=== PATIENT | male | born 1965 | race Two or more races ===

== ENCOUNTER 2018-09-29 09:16 | Emergency (ER) | payer MEDICAID ==
[~2018-09-29] VITALS: Ht 175.3 cm; Wt 93.9 kg
[~2018-09-29 09:16] MED LIST: INDO50CA82 PO; LEVO125T59 PO; METH750T3 PO
[2018-09-29 09:25] VITALS: BP 140/96
[2018-09-29] MEDS ORDERED: CLINDAMYCIN 900MG IV 50 ML IV ONE (12:30)
[2018-09-29] MEDS ORDERED: LIDOCAINE 1% (LOCAL ANESTH.) PF 5ml SDV ID ONE (13:30)
[2018-09-29] MEDS ORDERED: VANCOMYCIN 1GM/250ML 250 ML IV ONE (13:30)
[2018-09-29] MEDS ORDERED: BACITRACIN TOP OINT 1 UD PKG TOP ONE (13:30)
[2018-09-29] MEDS ORDERED: LIDOCAINE W/ EPINEPHRINE 1 % INJ 30ML ONE (13:31)
[2018-09-29] MEDS ORDERED: KETOROLAC TROMETH 30 MG/ML 1ML VIAL IV ONE (14:45)
[2018-09-29] MEDS ORDERED: HYDROcodone-ACET 10/325MG TAB PO ONE (16:00)
[2018-09-29] MEDS ORDERED: HYDROcodone-ACET 5/325MG TAB PO ONE (16:15)
[2018-09-29] MEDS ORDERED: SODIUM CHLORIDE 0.9% 2,000 ML IV ONE (16:26)
[2018-09-29 17:10] LABS: Basophils # (auto) 0 uL; Basophils % (auto) 0.5 % (0.0-2.0); Eosinophils # (auto) 0.3 uL; Eosinophils % (auto) 3.6 % (0.0-7.0); Hematocrit 42.4 % (41.0-53.0); Hemoglobin 14.4 g/dL (13.5-17.5); Lymphocytes # (auto) 1.5 uL; Lymphocytes % (auto) 15.5 % (10.0-50.0); Mean Corpuscular Hemoglobin 30.6 pg (28.0-32.0); Mean Corpuscular Hgb Conc. 34.1 g/dL (32.0-36.0); Mean Corpuscular Volume 89.9 fL (80.0-100.0); Monocytes # (auto) 1.2 uL; Monocytes % (auto) 13.1 % (0.0-12.0); Neutrophils # (auto) 6.4 uL; Neutrophils % (auto) 67.3 % (37.0-80.0); Platelet Count (auto) 285 10^3/uL (140-450); Red Blood Cells 4.71 10^6/uL (4.5-5.90); Red Cell Distribution Width 13.7 % (11.8-14.3); White Blood Cell 9.5 10^3/uL (4.4-10.8)
[2018-09-29 17:25] LABS: Alanine Aminotransferase 31 U/L (16-61); Albumin 3.3 g/dL (3.4-5.0); Anion Gap 6 (5-15); Aspartate Aminotransferase 22 U/L (15-37); BUN/Creatinine Ratio 18.8; Blood Urea Nitrogen 18 mg/dL (7-18); Calcium 8.5 mg/dL (8.5-10.1); Carbon Dioxide 27 mmol/L (21-32); Chloride 106 mmol/L (98-107); GFR African American 106 mL/min; GFR Non-African American 88 mL/min; Glucose 97 mg/dL (74-106); Potassium 4.1 mmol/L (3.5-5.1); Sodium 139 mmol/L (136-145)
[2018-09-29 17:28] LABS: INR 0.99 (0.9-1.15); Partial Thromboplastin Time 31.2 sec (23.78-33.04); Prothrombin Time 10.6 sec (9.27-12.13)
[2018-09-29 17:30] LABS: Alkaline Phosphatase 104 U/L (45-117); Bilirubin, Total 0.1 mg/dL (0.2-1.0); Total Protein 7.7 g/dL (6.4-8.2)
[2018-09-29] MEDS ORDERED: NEOMYCIN-BACITRACIN-POLYM 15GM TOP OINT TOP ONE (17:42)
== END 2018-09-29 19:01 | disposition home or self-care (01) ==
LOC: ER 09:16
DX: L03.012 Cellulitis of left finger (principal); R07.9 Chest pain, unspecified; F41.9 Anxiety disorder, unspecified; Z88.1 Allergy status to other antibiotic agents; Z88.4 Allergy status to anesthetic agent; Z79.899 Other long term (current) drug therapy
CPT/HCPCS: 26010; 36415; 71046; 73140; 80053; 84484; 85025; 85610; 85730; 87077; 87186; 87205; 93005; 96365; 96366; 96368; 96375; 99284; J1885; J2001; J3370; J3490; 51702; 96361